=== PATIENT | male | born 1940 | race Caucasian/White ===

== ENCOUNTER 2022-07-06 17:43 | Observation (INO) | payer MEDICARE, OTHER ==
[2022-07-06] MEDS ORDERED: Sodium Chloride 0.9% 1,000 ML IV SCH (18:45)
[2022-07-06 19:03] LABS: ESTIMATED GFR 85 mL/min (>60)
[2022-07-06] MEDS ORDERED: Ampicillin/Sulbactam Na 1.5 GM in Sodium Chloride 0.9% 50 ML IV ONE (19:15)
[2022-07-06] MEDS ORDERED: Acetaminophen 650 MG Supp RECTAL PRN (20:55)
[2022-07-06] MEDS ORDERED: Ondansetron 4 MG/2 ML SDV IVPUSH PRN (20:56)
[2022-07-06] MEDS: Acetaminophen 325 MG Tab PO SCH (21:07)
[2022-07-06] MEDS: HYDROmorphone 1 MG/ML Syringe IVPUSH PRN (21:07)
[2022-07-07] MEDS: HYDROmorphone 1 MG/ML Syringe IVPUSH PRN ×3 (00:16→07:21)
[2022-07-07] MEDS: Acetaminophen 325 MG Tab PO SCH ×4 (02:50→22:07)
[2022-07-07] MEDS: Ampicillin/Sulbactam Na 3 GM in Sodium Chloride 0.9% 100 ML IV SCH ×4 (02:51→19:29)
[2022-07-07] MEDS: Dextrose 5%-Lactated Ringers 1,000 ML IV SCH ×2 (06:10→21:38)
[2022-07-07] MEDS ORDERED: Bupivacaine 0.5%/EPINEPHrine 1:200,000 50 ML MDV ONE ×2 (07:00→07:56)
[2022-07-07] MEDS ORDERED: 50% Dextrose in Water 50 ML Syringe IVPUSH PRN (07:14)
[2022-07-07] MEDS ORDERED: Glucagon,Human Recombinant 1 MG Vial IM PRN (07:14)
[2022-07-07] MEDS ORDERED: fentaNYL 250 MCG/5 ML SDV ONE (07:35)
[2022-07-07] MEDS ORDERED: Neostigmine Methylsulfate 1 MG/ML 5 ML Syringe ONE (07:36)
[2022-07-07] MEDS ORDERED: Rocuronium 50 MG/5 ML Vial ONE (07:36)
[2022-07-07] MEDS ORDERED: Dexamethasone 4 MG/ML SDV ONE (07:36)
[2022-07-07] MEDS ORDERED: Glycopyrrolate 0.2 MG/ML 5 ML MDV ONE (07:36)
[2022-07-07] MEDS ORDERED: Propofol 200 MG/20 ML SDV ONE (07:36)
[2022-07-07] MEDS ORDERED: Ondansetron 4 MG/2 ML SDV ONE (07:36)
[2022-07-07] MEDS ORDERED: Succinylcholine 200 MG/10 ML MDV ONE (07:36)
[2022-07-07] MEDS: DILTIAZEM 240 MG PO SCH (08:41)
[2022-07-07] MEDS: Levothyroxine 50 MCG Tab*POM PO SCH (08:41)
[2022-07-07] MEDS ORDERED: Lactated Ringers 1,000 ML ONE (10:16)
[2022-07-07] MEDS ORDERED: oxyCODONE 5 MG Tab PO PRN (11:18)
[2022-07-07] MEDS: Insulin Lispro 100 Unit/ML 3 ML KwikPen SUBCUT SCH ×3 (12:16→22:02)
[2022-07-07] MEDS ORDERED: Phenol/Sodium Phenolate Spray 180 ML Bottle MUCMEM PRN (14:09)
[2022-07-07] MEDS ORDERED: Benzocaine/Cetylpyridinium/Menthol Lozenge MUCMEM PRN (16:41)
[2022-07-07] MEDS ORDERED: Alum Hydrox/Mag Hydrox/Simeth 15 ML, Lidocaine 2% 15 ML PO ONE ×2 (17:30)
[2022-07-07] MEDS ORDERED: Dexamethasone 4 MG/ML SDV IVPUSH ONE (17:51)
[2022-07-07] MEDS: HYDROmorphone 0.5 MG/0.5 ML Syringe IVPUSH PRN ×2 (19:07→23:55)
[2022-07-07] MEDS ORDERED: Albuterol 0.083% 2.5 MG/3 ML Neb Soln NEB PRN (19:29)
[2022-07-07] MEDS: Sodium Chloride 0.65% Nasal Spray 45 ML Bottle NAS PRN ×2 (20:00→23:54)
[2022-07-07] MEDS ORDERED: Pantoprazole 40 MG Tab.CR PO SCH (21:00)
[2022-07-08] MEDS: Ampicillin/Sulbactam Na 3 GM in Sodium Chloride 0.9% 100 ML IV SCH ×3 (02:24→14:18)
[2022-07-08] MEDS: Acetaminophen 325 MG Tab PO SCH ×2 (03:47→09:46)
[2022-07-08] MEDS: HYDROmorphone 0.5 MG/0.5 ML Syringe IVPUSH PRN (04:43)
[2022-07-08] MEDS: Levothyroxine 50 MCG Tab*POM PO SCH (07:38)
[2022-07-08] MEDS ORDERED: Magnesium Sulfate/Water 2 GM in Premix Bag 1 BAG IV ONE (08:00)
[2022-07-08] MEDS: DILTIAZEM 240 MG PO SCH (08:03)
[2022-07-08] MEDS: Insulin Lispro 100 Unit/ML 3 ML KwikPen SUBCUT SCH ×2 (08:08→11:37)
[2022-07-08] MEDS: Dextrose 5%-Lactated Ringers 1,000 ML IV SCH (08:45)
[2022-07-08] MEDS ORDERED: Finasteride 5 MG Tab PO SCH (21:00)
[2022-07-08] MEDS ORDERED: Terazosin 1 MG Cap PO SCH (21:00)
[2022-07-08] MEDS ORDERED: Montelukast 10 MG Tab PO SCH (21:00)
== END 2022-07-08 15:53 | disposition home or self-care (01) ==
LOC: JP.ED 17:43 → JP.MS 19:21
PROVIDERS: ADMIT Surgery; ATTEND Student in an Organized Health Care Education/Training Program
DX: K35.80 Unspecified acute appendicitis (principal); I10 Essential (primary) hypertension; E78.00 Pure hypercholesterolemia, unspecified; K21.9 Gastro-esophageal reflux disease without esophagitis; G47.30 Sleep apnea, unspecified; E11.9 Type 2 diabetes mellitus without complications; E03.9 Hypothyroidism, unspecified; N40.0 Benign prostatic hyperplasia without lower urinary tract symptoms; Z86.16 Personal history of COVID-19; Z79.899 Other long term (current) drug therapy; Z79.82 Long term (current) use of aspirin; Z79.890 Hormone replacement therapy; Z88.7 Allergy status to serum and vaccine; Z98.890 Other specified postprocedural states; Z96.659 Presence of unspecified artificial knee joint; Z20.822 Contact with and (suspected) exposure to COVID-19
CPT/HCPCS: 36415; 44970; 74176; 80048; 80053; 82947; 83735; 84100; 85018; 85025; 85027; 88302; 93010; 94640; 96361; 96365; 96366; 96367; 96375; 96376; 99285; A9270; G0378; J0295; J0330; J1100; J1170; J1815; J2405; J2704; J2710; J3010; J3475; J3490; J7030; J7120; J7121; U0002

== ENCOUNTER 2024-02-04 11:09 | Emergency (ER) | payer MEDICARE, BC ==
[2024-02-04 12:05] LABS: BASOPHILS ABSOLUTE AUTO 0.03 K/uL (0.00-0.10); BASOPHILS PERCENT AUTO 0.6 % (0.1-1.3); EOSINOPHILS ABSOLUTE AUTO 0.23 K/uL (0.00-0.40); EOSINOPHILS PERCENT AUTO 4.2 % (0.0-5.4); HEMATOCRIT 38.6 % (38.4-49.7); HEMOGLOBIN 13.3 g/dL (12.9-16.9); IMMATURE GRAN PERCENT AUTO 0.4 % (0.0-0.7); LYMPHOCYTES ABSOLUTE AUTO 2.08 K/uL (0.8-3.3); LYMPHOCYTES PERCENT AUTO 38.4 % (11.4-47.7); MEAN CORPUSCULAR HEMOGLOBIN 31.2 pg (31.6-35.5); MEAN CORPUSCULAR HGB CONC 34.5 g/dL (31.6-35.5); MEAN CORPUSCULAR VOLUME 90.6 fL (81.4-99.0); MONOCYTES ABSOLUTE AUTO 0.46 K/uL (0.20-0.90); MONOCYTES PERCENT AUTO 8.5 % (3.3-12.6); NEUTROPHILS PERCENT AUTO 47.9 % (40.0-78.1); PLATELET COUNT,PLT 186 K/uL (130-375); RED BLOOD CELL COUNT 4.26 M/uL (4.14-5.76); WHITE BLOOD CELL COUNT,WBC 5.4 K/uL (3.2-11.0)
[2024-02-04 12:08] LABS: IMMATURE GRAN ABSOLUTE AUTO 0.02 K/uL (0.00-0.23)
[2024-02-04] MEDS: Ketorolac 15 MG/ML SDV IVPUSH ONE (12:14)
[2024-02-04] MEDS: Sodium Chloride 0.9% 1,000 ML IV ONE (12:15)
[2024-02-04 12:16] LABS: APPEARANCE,URINE CLEAR (CLEAR); BILIRUBIN,URINE NEGATIVE (NEGATIVE); COLOR,URINE YELLOW (YELLOW); GLUCOSE,URINE NEGATIVE (NEGATIVE); KETONES,URINE NEGATIVE (NEGATIVE); LEUKOCYTE ESTERASE,URINE NEGATIVE (NEGATIVE); NITRITE,URINE NEGATIVE (NEGATIVE); OCCULT BLOOD,URINE NEGATIVE (NEGATIVE); PH,URINE 5.5 (5.0-8.0); PROTEIN,URINE 30 mg/dL (NEGATIVE)
[2024-02-04 12:25] LABS: AMORPHOUS SEDIMENT,URINE MODERATE; BACTERIA,URINE NOT SEEN; EPITHELIAL CELLS,URINE RARE; MUCUS,URINE MODERATE; RBC,URINE NOT SEEN (0-5); WBC,URINE 0-5 (0-5)
[2024-02-04 12:36] LABS: ANION GAP 12.4 mmol/L (5.0-14.0); CALCIUM 8.5 mg/dL (8.5-10.1); CREATININE 1.2 mg/dL (0.8-1.3); EST CRCL DRUG DOSING (CG) 50.3 mL/min
== END 2024-02-04 14:48 | disposition home or self-care (01) ==
LOC: JP.ED 11:09
DX: R10.9 Unspecified abdominal pain (principal); M62.838 Other muscle spasm; I10 Essential (primary) hypertension; E78.00 Pure hypercholesterolemia, unspecified; K21.9 Gastro-esophageal reflux disease without esophagitis; E03.9 Hypothyroidism, unspecified; E11.9 Type 2 diabetes mellitus without complications; Z86.16 Personal history of COVID-19; Z79.899 Other long term (current) drug therapy; Z79.84 Long term (current) use of oral hypoglycemic drugs; Z79.82 Long term (current) use of aspirin; Z88.7 Allergy status to serum and vaccine
CPT/HCPCS: 36415; 74176; 80048; 81001; 85025; 96361; 96374; 99284; J1885; J7030